=== PATIENT | male | born 1980 | race Two or more races ===

== ENCOUNTER 2024-04-24 18:50 | Emergency (ER) | payer OTHER ==
[~2024-04-24] VITALS: Ht 182.9 cm; Wt 97.5 kg
[2024-04-24] MEDS ORDERED: KETOROLAC TROMETHAMINE 60 MG VIAL IM ONE ×2 (19:15→19:51)
[2024-04-24 20:14] LABS: HEMATOCRIT 46.1 % (39.0-48.0); HEMOGLOBIN 15.8 g/dL (13-16.00); MEAN CELL VOLUME 77.5 fL (80.0-100.00); MEAN CORPUSCULAR HEMOGLOBIN 26.6 pg (27.00-32.0); MEAN CORPUSCULAR HGB CONC 34.3 g/dl (32.0-36.0); PLATELET COUNT 288 K/uL (150-450); RED BLOOD COUNT 5.95 M/uL (4.00-6.00); RED CELL DISTRIBUTION WIDTH 14.1 % (11.5-14.5)
[2024-04-24 20:32] LABS: URINE APPEARANCE Clear; URINE BILIRRUBIN Negative (NEGATIVE); URINE BLOOD Negative; URINE COLOR Yellow; URINE GLUCOSE Negative (NEGATIVE); URINE KETONE Negative (NEGATIVE); URINE LEUKOCYTE Negative; URINE NITRATE Negative; URINE PROTEIN 30 (NEGATIVE)
[2024-04-24 20:36] LABS: URINE BACTERIA 56.6 uL (0.0-1933); URINE WBC 9.5 uL (0.0-23.2)
[2024-04-24 20:38] LABS: ALBUMIN 4.1 gm/dL (3.4-5.0); ALKALINE PHOSPHATASE 84 U/L (50-136); AMYLASE 59 U/L (25-115); ANION GAP 8 (10.0-20.0); AST/SGOT 30 U/L (15-37); BILIRUBIN,CONJUGATED < 0.10 mg/dL (0.0-0.2); BLOOD UREA NITROGEN 21 mg/dL (7-18); BUN CREA RATIO 23 (7.0-25.0); CALCIUM 9.3 mg/dL (8.5-10.1); CARBON DIOXIDE 30 mEq/L (21-32); CHLORIDE 105 mmol/L (98-107); CREATININE SERUM 0.92 mg/dL (0.70-1.30); GFR 89.79; GLOBULINA 3.8 G/DL (2.4-3.5); GLUCOSE FASTING 102 mg/dL (65-100); LIPASE 41 U/L (13-75); OSMOLALITY SERUM 281 MOSM/KG (275-295); POTASSIUM 4.05 mEq/L (3.5-5.1); SODIUM 139 mmol/L (136-145); TOTAL PROTEIN 7.9 gm/dL (6.4-8.2)
[2024-04-24 21:02] LABS: ALT/SGPT 52 U/L (12-78)
[2024-04-24 21:07] LABS: URINE EPITHELIAL CELLS 0.7 uL (0.0-38.8); URINE SPERM FEW
[2024-04-24] MEDS ORDERED: DICLOFENAC SODI75 MG PO (21:30)
[2024-04-24] MEDS ORDERED: PEPCID AC20 MG PO (21:30)
== END 2024-04-24 22:04 | disposition home or self-care (01) ==
LOC: ER 18:51
PROVIDERS: General Practice
DX: R10.32 Left lower quadrant pain (principal)